=== PATIENT | male | born 1940 | race Caucasian/White ===

== ENCOUNTER 2017-09-09 | Day surgery (SDC) | END 2017-09-09 10:30 | disposition home or self-care (01) ==

== ENCOUNTER 2017-12-02 13:49 | Day surgery (SDC) | payer MEDICARE, OTHER ==
[~2017-12-02] VITALS: Ht 180.3 cm; Wt 124.3 kg
[~2017-12-02 13:49] MED LIST: ALLO100 PO; ALLO300 PO; ALPR.5 PO; ASPI81EC PO; BUME2 PO; CARV25 PO; CITA20 PO; CLOP75 PO; DOXE10 PO; FLUO10 PO; FURO80 PO; HYDACE5 PO; IMDUR; INSDET100 SC; INSR10I SC; INSR10I SUBQ; LISI20 PO; LISINOPRIL; LOSA25 PO; Lipitor; METANX; METO2.5 PO; NIFE90ER PO; Novolog100 UNIT/2 SC; POTA10T PO; PRAV20 PO; TRAM50 PO; ZOLP10 PO
[2017-12-03 04:19] LABS: BASOPHILS ABSOLUTE AUTO 0.01 K/mm3 (0.00-0.23); BASOPHILS PERCENT AUTO 0 % (0-2); EOSINOPHILS PERCENT AUTO 0 % (0-6); Hematocrit 33.4 % (37.0-53.0); IMMATURE GRAN ABSOLUTE AUTO 0.05 K/mm3 (0.00-0.10); IMMATURE GRAN PERCENT AUTO 1 % (0-1); LYMPHOCYTES ABSOLUTE AUTO 0.58 K/mm3 (0.84-5.20); LYMPHOCYTES PERCENT AUTO 7 % (21-46); MONOCYTES ABSOLUTE AUTO 0.36 K/mm3 (0.16-1.47); MONOCYTES PERCENT AUTO 4 % (4-13); Mean Corpuscular HGB 31.5 pg (26.0-34.0); Mean Corpuscular HGB Conc 32.9 g/dL (31.5-36.5); Mean Corpuscular Volume 96 fL (80-100); Mean Platelet Volume 11.6 fL (9.1-12.4); NEUTROPHILS ABSOLUTE AUTO 7.09 K/mm3 (1.96-9.15); NEUTROPHILS PERCENT AUTO 88 % (41-73); Platelet Count 84 K/mm3 (150-400); RDW Coefficient Variation 15.7 % (11.7-14.2); RDW Standard Deviation 54.7 fL (35.1-46.3); Red Blood Cell Count 3.49 M/mm3 (4.30-5.90); White Blood Cell Count 8.09 K/mm3 (4.00-11.30)
[2017-12-03 04:42] LABS: Calcium, Blood 8.3 mg/dL (8.5-10.1); Creatinine, Blood 1.97 mg/dL (0.60-1.20); Potassium, Blood 4.3 mmol/L (3.5-5.5)
[2017-12-04] MEDS ORDERED: Percocet 5-3251 EACH PO (10:48)
[2017-12-04] MEDS ORDERED: Ecotrin325 MG PO (10:49)
== END 2017-12-04 13:41 | disposition home health service (06) ==
LOC: ORSCMMR 13:49 → ORD 15:00 → ORSCMMR 15:00 → SURS 17:58 → ORSCMMR 12-04 13:41
PROVIDERS: Orthopaedic Surgery
PROC: 0SRC0JA Replacement of Right Knee Joint with Synthetic Substitute, Uncemented, Open Approach (ICD-10-PCS; principal; 2017-12-02 15:00)
DX: M17.11 Unilateral primary osteoarthritis, right knee (principal); I10 Essential (primary) hypertension; I25.10 Atherosclerotic heart disease of native coronary artery without angina pectoris; E11.9 Type 2 diabetes mellitus without complications; E66.01 Morbid (severe) obesity due to excess calories; Z68.37 Body mass index [BMI] 37.0-37.9, adult; Z79.899 Other long term (current) drug therapy; Z79.82 Long term (current) use of aspirin
CPT/HCPCS: 36415; 73560-RT; 80048; 82947; 85025; 86850; 86900; 86901; 88300; 97110; 97116; 97162; 97530; C1776; G8978; G8979; G8980; J0171; J0330; J0690; J0735; J1100; J1885; J2250; J2405; J2795; J3010; J7120

== ENCOUNTER 2018-12-02 10:29 | Inpatient (IN) | payer OTHER, MEDICARE ==
[~2018-12-02] VITALS: Ht 177.8 cm; Wt 114.0 kg
[~2018-12-02 10:29] MED LIST changes: +Ecotrin325 MG PO; +Percocet 5-3251 EACH PO
[2018-12-02 11:13] LABS: BASOPHILS ABSOLUTE AUTO 0.03 K/mm3 (0.00-0.23); BASOPHILS PERCENT AUTO 1 % (0-2); EOSINOPHILS ABSOLUTE AUTO 0.02 K/mm3 (0.00-0.68); EOSINOPHILS PERCENT AUTO 0 % (0-6); Hematocrit 31.2 % (37.0-53.0); Hemoglobin 10.5 g/dL (13.5-17.5); IMMATURE GRAN ABSOLUTE AUTO 0.03 K/mm3 (0.00-0.10); IMMATURE GRAN PERCENT AUTO 1 % (0-1); LYMPHOCYTES ABSOLUTE AUTO 1.09 K/mm3 (0.84-5.20); LYMPHOCYTES PERCENT AUTO 17 % (21-46); MONOCYTES PERCENT AUTO 11 % (4-13); Mean Corpuscular HGB Conc 33.7 g/dL (31.5-36.5); Mean Corpuscular Volume 98 fL (80-100); Mean Platelet Volume 12.3 fL (9.1-12.4); NEUTROPHILS ABSOLUTE AUTO 4.45 K/mm3 (1.96-9.15); NEUTROPHILS PERCENT AUTO 70 % (41-73); Platelet Count 86 K/mm3 (150-400); RDW Standard Deviation 50.8 fL (35.1-46.3); Red Blood Cell Count 3.18 M/mm3 (4.30-5.90); White Blood Cell Count 6.32 K/mm3 (4.00-11.30)
[2018-12-02 11:33] LABS: Albumin, Blood 3.3 g/dL (3.4-5.0); Albumin/Globulin Ratio 0.9 (0.8-1.8); Bilirubin, Total 0.6 mg/dL (0.1-1.0); Bun/Creatinine Ratio 22.5 (12.0-20.0); Calcium, Blood 8.6 mg/dL (8.5-10.1); Creatinine, Blood 3.96 mg/dL (0.60-1.20); Globulin, Blood 3.7 g/dL (2.2-4.0); Potassium, Blood 3.3 mmol/L (3.5-5.5); Troponin I 0.1 ng/mL (0.000-0.040)
[2018-12-02] MEDS ORDERED: Ultram50 MG PO (14:00)
[2018-12-03 05:23] LABS: Hematocrit 30.2 % (37.0-53.0); Hemoglobin 10.2 g/dL (13.5-17.5)
[2018-12-03 05:43] LABS: Albumin, Blood 3.2 g/dL (3.4-5.0); Anion Gap 12 mmol/L (6-16); Blood Urea Nitrogen 95 mg/dL (8-24); Bun/Creatinine Ratio 24.4 (12.0-20.0); CO2, Blood 24 mmol/L (21-32); Calcium, Blood 8.5 mg/dL (8.5-10.1); Chloride, Blood 101 mmol/L (98-108); Glomerular Filtration Rate 16 (60-); Glucose, Blood 238 mg/dL (70-99); Magnesium, Blood 1.9 mg/dL (1.6-2.4); Phosphorus, Blood 5.2 mg/dL (2.5-4.9); Potassium, Blood 3.3 mmol/L (3.5-5.5); Sodium, Blood 137 mmol/L (136-145)
[2018-12-04 05:13] LABS: Hematocrit 32.5 % (37.0-53.0); Hemoglobin 10.6 g/dL (13.5-17.5)
[2018-12-04 05:27] LABS: Albumin, Blood 3.3 g/dL (3.4-5.0); Anion Gap 10 mmol/L (6-16); Blood Urea Nitrogen 69 mg/dL (8-24); Bun/Creatinine Ratio 21.9 (12.0-20.0); CO2, Blood 28 mmol/L (21-32); Calcium, Blood 8.6 mg/dL (8.5-10.1); Chloride, Blood 100 mmol/L (98-108); Creatinine, Blood 3.15 mg/dL (0.60-1.20); Glomerular Filtration Rate 20 (60-); Glucose, Blood 200 mg/dL (70-99); Magnesium, Blood 1.9 mg/dL (1.6-2.4); Phosphorus, Blood 3.4 mg/dL (2.5-4.9); Potassium, Blood 3.4 mmol/L (3.5-5.5); Sodium, Blood 138 mmol/L (136-145)
[2018-12-05 03:07] LABS: HBSAG SCREEN Negative (Negative); HEP A AB, IGM Negative (Negative); HEP B CORE AB, IGM Negative (Negative); HEP C VIRUS AB <0.1 (0.0-0.9)
[2018-12-05 04:48] LABS: Hematocrit 30.7 % (37.0-53.0); Hemoglobin 10.1 g/dL (13.5-17.5)
[2018-12-05 05:01] LABS: Anion Gap 9 mmol/L (6-16); Blood Urea Nitrogen 50 mg/dL (8-24); Bun/Creatinine Ratio 18.3 (12.0-20.0); CO2, Blood 29 mmol/L (21-32); Calcium, Blood 8.4 mg/dL (8.5-10.1); Chloride, Blood 103 mmol/L (98-108); Creatinine, Blood 2.73 mg/dL (0.60-1.20); Glomerular Filtration Rate 24 (60-); Glucose, Blood 121 mg/dL (70-99); Phosphorus, Blood 2.7 mg/dL (2.5-4.9); Potassium, Blood 3.2 mmol/L (3.5-5.5); Sodium, Blood 141 mmol/L (136-145)
[2018-12-05 09:10] LABS: Uric Acid, Blood 5.4 mg/dL (3.5-7.2)
[2018-12-06 05:36] LABS: Hematocrit 31.9 % (37.0-53.0); Hemoglobin 10.3 g/dL (13.5-17.5)
[2018-12-06 05:54] LABS: Albumin, Blood 3.2 g/dL (3.4-5.0); Anion Gap 9 mmol/L (6-16); Blood Urea Nitrogen 60 mg/dL (8-24); Bun/Creatinine Ratio 19.2 (12.0-20.0); CO2, Blood 29 mmol/L (21-32); Calcium, Blood 8.6 mg/dL (8.5-10.1); Chloride, Blood 99 mmol/L (98-108); Creatinine, Blood 3.12 mg/dL (0.60-1.20); Glomerular Filtration Rate 21 (60-); Glucose, Blood 167 mg/dL (70-99); Magnesium, Blood 1.8 mg/dL (1.6-2.4); Phosphorus, Blood 2.9 mg/dL (2.5-4.9); Potassium, Blood 3.6 mmol/L (3.5-5.5); Sodium, Blood 137 mmol/L (136-145)
[2018-12-07 04:54] LABS: Hematocrit 31.3 % (37.0-53.0); Hemoglobin 10.3 g/dL (13.5-17.5)
[2018-12-07 05:15] LABS: Anion Gap 9 mmol/L (6-16); Blood Urea Nitrogen 47 mg/dL (8-24); Bun/Creatinine Ratio 17.9 (12.0-20.0); CO2, Blood 29 mmol/L (21-32); Calcium, Blood 8.3 mg/dL (8.5-10.1); Chloride, Blood 98 mmol/L (98-108); Creatinine, Blood 2.62 mg/dL (0.60-1.20); Glomerular Filtration Rate 25 (60-); Glucose, Blood 157 mg/dL (70-99); Magnesium, Blood 1.8 mg/dL (1.6-2.4); Phosphorus, Blood 3.2 mg/dL (2.5-4.9); Potassium, Blood 3.2 mmol/L (3.5-5.5); Sodium, Blood 136 mmol/L (136-145)
[2018-12-07] MEDS ORDERED: Bumetanide2 MG PO (14:27)
[2018-12-07] MEDS ORDERED: ACET325 PO (14:28)
[2018-12-07] MEDS ORDERED: Humalog100 UNIT/1 SC (14:43)
[2018-12-07] MEDS ORDERED: BASAGLAR K100 UNIT/1 SC (14:44)
[2018-12-07 15:15] LABS: Protein, Urine Quantitative 68.1 mg/dL (0.0-11.9)
[2018-12-09 08:08] LABS: ANTIGLOMERULAR BM AB 3 units (0-20)
[2018-12-09 14:07] LABS: ANA DIRECT Negative (Negative); ANTIMYELOPEROXIDASE (MPO) ABS <9.0 U/mL (0.0-9.0); ANTIPROTEINASE 3 (PR-3) ABS <3.5 U/mL (0.0-3.5); ATYPICAL PANCA <1:20 titer (Neg:<1:20); CYTOPLASMIC (C-ANCA) <1:20 titer (Neg:<1:20); PERINUCLEAR (P-ANCA) <1:20 titer (Neg:<1:20)
[2018-12-09 15:07] LABS: A/G RATIO 1.2 (0.7-1.7); ALBUMIN 3.4 g/dL (2.9-4.4); ALPHA-1-GLOBULIN 0.3 g/dL (0.0-0.4); ALPHA-2-GLOBULIN 0.7 g/dL (0.4-1.0); GAMMA GLOBULIN 1.1 g/dL (0.4-1.8); IMMUNOGLOBULIN A, QN, SERUM 497 mg/dL (61-437); IMMUNOGLOBULIN G, QN, SERUM 1106 mg/dL (700-1600); IMMUNOGLOBULIN M, QN, SERUM 73 mg/dL (15-143); M-SPIKE 0.2 g/dL (Not Observed); PROTEIN, TOTAL, SERUM 6.4 g/dL (6.0-8.5)
[2018-12-11 12:07] LABS: M-SPIKE, % Not Observed % (Not Observed); PROTEIN,TOTAL,URINE 65.7 mg/dL (Not Estab.)
== END 2018-12-07 14:58 | disposition home or self-care (01) | DRG 674 ==
LOC: ER 10:29 → MEDS 10:30
PROVIDERS: Emergency Medicine; Internal Medicine Nephrology; ADMIT Internal Medicine
PROC: 0JH63XZ Insertion of Tunneled Vascular Access Device into Chest Subcutaneous Tissue and Fascia, Percutaneous Approach (ICD-10-PCS; 2018-12-02)
PROC: 02HV33Z Insertion of Infusion Device into Superior Vena Cava, Percutaneous Approach (ICD-10-PCS; principal; 2018-12-03)
PROC: B5181ZA Fluoroscopy of Superior Vena Cava using Low Osmolar Contrast, Guidance (ICD-10-PCS; 2018-12-03)
PROC: 5A1D70Z Performance of Urinary Filtration, Intermittent, Less than 6 Hours Per Day (ICD-10-PCS; 2018-12-03)
DX: N17.9 Acute kidney failure, unspecified (principal); I13.2 Hypertensive heart and chronic kidney disease with heart failure and with stage 5 chronic kidney disease, or end stage renal disease; I50.42 Chronic combined systolic (congestive) and diastolic (congestive) heart failure; Z79.4 Long term (current) use of insulin; N18.6 End stage renal disease; N25.81 Secondary hyperparathyroidism of renal origin; I25.10 Atherosclerotic heart disease of native coronary artery without angina pectoris; Z79.891 Long term (current) use of opiate analgesic; Z95.0 Presence of cardiac pacemaker; Z96.0 Presence of urogenital implants; Z87.891 Personal history of nicotine dependence; E78.5 Hyperlipidemia, unspecified; G47.33 Obstructive sleep apnea (adult) (pediatric); E87.6 Hypokalemia; E83.39 Other disorders of phosphorus metabolism; E11.65 Type 2 diabetes mellitus with hyperglycemia; R16.1 Splenomegaly, not elsewhere classified; E88.09 Other disorders of plasma-protein metabolism, not elsewhere classified; E11.51 Type 2 diabetes mellitus with diabetic peripheral angiopathy without gangrene; E11.22 Type 2 diabetes mellitus with diabetic chronic kidney disease; D69.6 Thrombocytopenia, unspecified; I35.0 Nonrheumatic aortic (valve) stenosis; Z99.2 Dependence on renal dialysis
CPT/HCPCS: 36415; 36558; 71046; 74150; 76770; 76937; 80048; 80053; 80069; 80074; 81050; 82550; 82784; 82947; 83516; 83520; 83735; 83880; 84156; 84165; 84166; 84484; 84550; 85014; 85018; 85025; 86038; 86256; 86317; 86334; 86335; 93005; 93010; 93306; 96372; 99152; 99153; 99285-25; A9270; C1750; C1769; G0378; J0881; J1644; J1650; J2250; J3010; J7040

== ENCOUNTER 2019-01-12 08:38 | Emergency (ER) | payer OTHER, MEDICARE ==
[~2019-01-12] VITALS: Ht 180.3 cm; Wt 111.1 kg
[~2019-01-12 08:38] MED LIST changes: +ACET325 PO; +BASAGLAR K100 UNIT/1 SC; +Bumetanide2 MG PO; +Humalog100 UNIT/1 SC; +Ultram50 MG PO
[2019-01-12] MEDS ORDERED: ALPR.5 PO (09:06)
[2019-01-12] MEDS ORDERED: LORA.5 PO (09:07)
[2019-01-12] MEDS ORDERED: Protonix40 MG (09:08)
[2019-01-12] MEDS ORDERED: ALUM320SU PO (09:09)
[2019-01-12 09:46] LABS: BASOPHILS ABSOLUTE AUTO 0.04 K/mm3 (0.00-0.23); BASOPHILS PERCENT AUTO 1 % (0-2); EOSINOPHILS ABSOLUTE AUTO 0.03 K/mm3 (0.00-0.68); EOSINOPHILS PERCENT AUTO 0 % (0-6); Hematocrit 34.1 % (37.0-53.0); IMMATURE GRAN ABSOLUTE AUTO 0.04 K/mm3 (0.00-0.10); IMMATURE GRAN PERCENT AUTO 1 % (0-1); LYMPHOCYTES ABSOLUTE AUTO 1.29 K/mm3 (0.84-5.20); LYMPHOCYTES PERCENT AUTO 18 % (21-46); MONOCYTES ABSOLUTE AUTO 0.63 K/mm3 (0.16-1.47); MONOCYTES PERCENT AUTO 9 % (4-13); Mean Corpuscular HGB 32.6 pg (26.0-34.0); Mean Corpuscular HGB Conc 32.3 g/dL (31.5-36.5); Mean Corpuscular Volume 101 fL (80-100); NEUTROPHILS ABSOLUTE AUTO 5.06 K/mm3 (1.96-9.15); NEUTROPHILS PERCENT AUTO 71 % (41-73); NRBC ABSOLUTE 0.02 K/mm3 (0.00-0.02); NRBC Auto 0.3 /100 WBC (0.0-0.2); Platelet Count 109 K/mm3 (150-400); RDW Coefficient Variation 16.2 % (11.7-14.2); RDW Standard Deviation 58.6 fL (35.1-46.3); Red Blood Cell Count 3.37 M/mm3 (4.30-5.90); White Blood Cell Count 7.09 K/mm3 (4.00-11.30)
[2019-01-12 10:05] LABS: Albumin, Blood 3.5 g/dL (3.4-5.0); Albumin/Globulin Ratio 0.9 (0.8-1.8); Bilirubin, Total 0.9 mg/dL (0.1-1.0); Bun/Creatinine Ratio 26.1 (12.0-20.0); Calcium, Blood 8.9 mg/dL (8.5-10.1); Creatinine, Blood 1.99 mg/dL (0.60-1.20); Potassium, Blood 4.3 mmol/L (3.5-5.5); Total Protein, Blood 7.5 g/dL (6.4-8.2)
== END 2019-01-12 12:10 | disposition home or self-care (01) ==
LOC: ER 08:38
PROVIDERS: Physician Assistant
DX: R06.02 Shortness of breath (principal); R53.83 Other fatigue; E11.22 Type 2 diabetes mellitus with diabetic chronic kidney disease; I12.0 Hypertensive chronic kidney disease with stage 5 chronic kidney disease or end stage renal disease; N18.6 End stage renal disease; D63.1 Anemia in chronic kidney disease; F17.200 Nicotine dependence, unspecified, uncomplicated; Z79.899 Other long term (current) drug therapy; Z79.4 Long term (current) use of insulin
CPT/HCPCS: 36415; 71046; 80053; 84484; 85025; 86850; 86900; 86901; 93005; 93010; 99285-25

== ENCOUNTER → 2019-02-19 | Outpatient (CLI) | payer MEDICARE, OTHER ==
[~2019-02-19] MED LIST changes: +ALUM320SU PO; +LORA.5 PO; +Protonix40 MG
== END | disposition home or self-care (01) ==
LOC: LAB 11:00 → LAB SHORT 11:00
DX: L03.119 Cellulitis of unspecified part of limb (principal)
CPT/HCPCS: 87070; 87077; 87186; 87205

== ENCOUNTER 2019-08-25 06:06 | Day surgery (SDC) | payer MEDICARE, OTHER ==
[~2019-08-25] VITALS: Ht 177.8 cm; Wt 105.0 kg
[~2019-08-25 06:06] MED LIST changes: +ASPI81CH PO; +INSDET100; +Pravachol40 MG PO
[2019-08-25] MEDS ORDERED: CLOP75 PO (09:39)
--- NOTE | 2019-08-25 13:30 | NUR ---
R WRIST TR BAND REMOVED. -BLEEDING OR SWELLING. PUNCTURE AREA CLEANED /C NS, CLOTH DOT DRSG PLACED. R WRIST SPLINT REAPPLIED. PT ABD TO BATHROOM /C SBA. TOLERATED WELL. -BLEEDING OR SWELLING R GROIN AREA. PT VERBALIZED UNDERSTANDING OF WRITTEN AND VERBAL D/C INST. IV REMOVED. PT TAKEN OUT OF THE HRT CENTER VIA W/C.
== END 2019-08-25 13:30 | disposition home or self-care (01) ==
LOC: MHTC 06:06
PROC: B201YZZ Plain Radiography of Multiple Coronary Arteries using Other Contrast (ICD-10-PCS; principal; 2019-08-25)
PROC: B206YZZ Plain Radiography of Right and Left Heart using Other Contrast (ICD-10-PCS; principal; 2019-08-25)
PROC: 4A023N8 Measurement of Cardiac Sampling and Pressure, Bilateral, Percutaneous Approach (ICD-10-PCS; principal; 2019-08-25)
DX: I25.5 Ischemic cardiomyopathy (principal); I25.10 Atherosclerotic heart disease of native coronary artery without angina pectoris; I27.20 Pulmonary hypertension, unspecified; I35.0 Nonrheumatic aortic (valve) stenosis; I12.9 Hypertensive chronic kidney disease with stage 1 through stage 4 chronic kidney disease, or unspecified chronic kidney disease; E11.22 Type 2 diabetes mellitus with diabetic chronic kidney disease; N18.3 Chronic kidney disease, stage 3 (moderate); E78.00 Pure hypercholesterolemia, unspecified; Z79.4 Long term (current) use of insulin; Z79.899 Other long term (current) drug therapy; Z79.82 Long term (current) use of aspirin; Z87.891 Personal history of nicotine dependence
CPT/HCPCS: 82947; 93458; 93460; 99152; 99153; C1769; C1887; C1894; J1200; J1644; J2250; J3010; J7030; Q9967

== ENCOUNTER 2019-09-10 06:32 | Observation (INO) | payer MEDICARE, OTHER ==
[~2019-09-10] VITALS: Ht 177.8 cm; Wt 109.2 kg
[~2019-09-10 06:32] MED LIST changes: -INSDET100
--- NOTE | 2019-09-10 11:40 | NUR ---
ARRIVAL NOTE: PT ARRIVED FROM VIA BED. PT ORIENTED TO THE ROOM. RT RADIAL/RT GROIN SITES ASSESSED AND STABLE AT THIS TIME. TR BAND IN PLACE TO RT RADIAL W/ SPLINT, AND SHEATH TO RT GROIN. PT IS DROWSY BUT AWAKENS TO VERBAL STIMULI AND ANSWERS SIMPLE YES/NO QUESTIONS APPROPRIATELY. LUNGS ARE CLEAR T/O BILATERALLY, DIM IN BILATERAL BASES. SP02 100% ON 2L 02 VIA N/C. AFTER OBSERVING PT ON 1L 02 FOR A SHORT PERIOD, PT WAS TAKEN OFF 02 SPO2 99-100%. HR IRREGULAR, 100% ATRIAL PACED WITH OCASSIONAL/FREQUENT PVC'S. ABD LARGE/ROUND/SOFT/NON-TENDER TO PALPATION. BT'S HYPOACTIVE X 4 QAUDS AT THIS TIME. PT REPORTS HE HASN'T EATEN FOR OVER A DAY. WILL RESUME DIET AFTER LOOKING OVER ORDERS. NO VOID YET.
--- NOTE | 2019-09-10 17:58 | NUR ---
PT UPDATE/POST SHEATH PULL: RT GROIN WITH A SMALL AMT OF SWELLING DIRECTLY AROUND INSERTION SITE AND A SMALL HARD KNOT, HOWEVER, SITE AFTER 20 MINUTES OF MANUAL PRESSURE IS STABLE. NO FURTHER OOZING/BLEEDING/NEW SWELLING. MURPHY CATHETER PLACED PT WAS NOT ABLE TO VOID DESPITE SEVERAL ATTEMPTS TO USE THE URINAL. PT REPORTS HE "HAS TO STAND TO PEE." 16F COUDE CATHETER PLACED AND URINE SAMPLE SENT TO LAB.
[2019-09-10 18:10] LABS: Source, Urine Catheter
[2019-09-10 18:21] LABS: Bilirubin, Urine Neg (Neg); Blood, Urine 1+ (Neg); Glucose Qualitative, Urine Neg (Neg); Ketones, Urine Neg (Neg); Leukocyte Esterase, Urine Neg (Neg); Nitrite, Urine Neg (Neg); Protein, Urine 3+ (Neg); Urobilinogen, Urine NORM (Normal)
[2019-09-10 18:34] LABS: Appearance, Urine Clear (Clear); Color, Urine Yellow (P-Yellow)
[2019-09-10 18:35] LABS: Bacteria Rare /hpf; Squamous Epithelial Cells Rare /hpf (Few); White Blood Cells, Urine 0-2 /hpf (0-5)
--- NOTE | 2019-09-10 19:00 | NUR ---
SHIFT SUMMARY: PT'S RT GROIN SITE REMAINS STABLE AT THIS TIME. IN FACT, SMALL AMT OF SWELLING/SMALL KNOT IMPROVED SINCE PRIOR TO SHEATH PULL. PT ANXIOUS ABOUT FLUCTUATING BP'S T/O SHIFT. NO C/O PAIN. PT NEEDS CONSTANT REMINDERS OF ACTIVITY RESTRICTIONS. PT DESIRES TO GO HOME TONIGHT BUT UNDERSTANDS HE IS STAYING OVERNIGHT AND WANTS MURPHY D/C'D SOON ACTIVITIY RESTRICITONS ARE LIFTED. PT'S HR REMAINS 100% A-PACED WITH OCASSIONAL/FREQUENT PVC'SLOW 60'S RANGE. PT'S BP VERY LABILE T/O SHIFT. PT TO RESTART ON HOME CARDIAC MEDS. PT REC'D NS AT 75ML/HR X6 HRS, THEN PT DIURESED WITH LASIX 40 MG IVP. MURPHY CATH PLACED R/T URINARY RETENTION. BLADDER SCANNED >500ML IN BLADDER PRIOR TO PLACEMENT. UA SENT TO LAB. DRAINING CLEAR, YELLOW URINE. NO BM THIS SHIFT. PT W/GOOD APPETITE.
--- NOTE | 2019-09-10 19:15 | NUR ---
REPORTED OFF TO GISELLE FRANCIS WHOM WILL ASSUME CARE OF THIS PT. CHECKED RT RADIAL AND RT GROIN SITES TOGETHER. BOTH SITES REMAIN STABLE AT THIS TIME
[2019-09-11 03:17] LABS: BASOPHILS ABSOLUTE AUTO 0.03 K/mm3 (0.00-0.23); BASOPHILS PERCENT AUTO 0 % (0-2); EOSINOPHILS PERCENT AUTO 0 % (0-6); Hematocrit 34.2 % (37.0-53.0); Hemoglobin 11.2 g/dL (13.5-17.5); IMMATURE GRAN ABSOLUTE AUTO 0.03 K/mm3 (0.00-0.10); IMMATURE GRAN PERCENT AUTO 0 % (0-1); LYMPHOCYTES ABSOLUTE AUTO 0.95 K/mm3 (0.84-5.20); LYMPHOCYTES PERCENT AUTO 12 % (21-46); MONOCYTES ABSOLUTE AUTO 0.68 K/mm3 (0.16-1.47); MONOCYTES PERCENT AUTO 9 % (4-13); Mean Corpuscular HGB Conc 32.7 g/dL (31.5-36.5); Mean Corpuscular Volume 98 fL (80-100); Mean Platelet Volume 11.8 fL (9.1-12.4); NEUTROPHILS ABSOLUTE AUTO 6.21 K/mm3 (1.96-9.15); NEUTROPHILS PERCENT AUTO 79 % (41-73); Platelet Count 71 K/mm3 (150-400); RDW Coefficient Variation 16.7 % (11.7-14.2); RDW Standard Deviation 59.3 fL (35.1-46.3)
[2019-09-11 03:31] LABS: Bun/Creatinine Ratio 26.7 (12.0-20.0); Calcium, Blood 8.5 mg/dL (8.5-10.1); Creatinine, Blood 1.46 mg/dL (0.60-1.20); Potassium, Blood 3.8 mmol/L (3.5-5.5)
--- NOTE | 2019-09-11 05:49 | NUR ---
SHIFT SUMMARY PATIENT SLEPT WELL TONIGHT. HAD A ROUGH START GETTING PAIN, ANXIETY, BLOOD PRESSURE UNDER CONTROL, MOST WERE RELIEVED ONCE PATIENT WAS ABLE TO MOVE OFF OF BACK AROUND 22:30. SHAKE SAWYER ACCESS SITES STABLE ALL NIGHT, NO FURTHER COMPLICATIONS. DID RECEIVE ORDER FROM DR. BUCKLEY FOR HYDRALAZINE AFTER FAILED ATTEMPTS TO DECREASE BP WITH SCHEDULED MEDS, ANXIOLYTICS, MUCH IMPROVED AFTER HYDRALAZINE, SEE VITALS. PATIENT MOVES FROM BED TO CHAIR WITHOUT DIZZINESS, SAT UP FOR ABOUT 2 HOURS EARLIER THIS AM. ASSESSMENT IS CHARTED. VSS. NO C/O PAIN. WILL CONTINUE TO MONITOR.
--- NOTE | 2019-09-11 11:13 | NUR ---
SUMMARY Assumed care of pt at 0700. Bedside report recieved from Sukh DESAI. Procedure sites assessed during report. Right radial site with nonadherent dressing and tegaderm in place. No drainage, hematoma, or bruising noted. Color, sensation, pulses, capillary refill equal BUE. Right femoral site with nonadherent dressing and tegaderm in place. Bruising noted to area, unchanged from previous shift. No drainage or hematoma. Color, sensation, pulses, capillary refill equal BLE. Pt A&O x 4. Answers questions, follows commands, verbalizes needs. Wears bilateral hearing aids but is still severely hard of hearing. Pt reads lips and repeats back to ensure is hearing the speaker correctly. Pt on room air. SpO2 90% or greater. Vital signs stable. Ate 100% of breakfast, tolerated well. Voided urine into toilet. Independent in room. Dr Arenas in to see pt around 0800. Stated pt may go home. This RN reviewed rhythm strips with provider from 09/10/19 showing bigeminal rhythm with atrial pacing. Discussed that pt has dual chamber pacemaker and possibility that pt was ventricular pacing vs having PVCs. Provider reiterated that pt is okay to go home. Stated she would like pt to ambulate and femoral site to be assessed afterwards for stability. Pt ambulated 400+ feet. Steady, but slow gait. No changes noted to femoral site or BLE assessment. Pt discharged from unit at 0900. Discharge education given to pt who repeated education back to this RN. Reviewed medication regimen, including strict adherence to aspirin and plavix. Pt verbalizes understanding, including that a family member is an echocardiogram cctv technician and "he told me how quickly a stent can clog up". Stent card given to pt. Pt placed it in walled. Reviewed activity restrictions. Pt verbalized understanding. Pt escorted to entrance by this RN to meet his , Liya, who is driving him home.
== END 2019-09-11 09:02 | disposition home or self-care (01) ==
LOC: MHTC 06:32 → PCU 10:52 → ICUW 11:15 → MHTC 21:43 → ICUW 21:46
PROVIDERS: ADMIT Internal Medicine Interventional Cardiology
DX: I25.10 Atherosclerotic heart disease of native coronary artery without angina pectoris (principal); E11.22 Type 2 diabetes mellitus with diabetic chronic kidney disease; I13.0 Hypertensive heart and chronic kidney disease with heart failure and stage 1 through stage 4 chronic kidney disease, or unspecified chronic kidney disease; I50.40 Unspecified combined systolic (congestive) and diastolic (congestive) heart failure; N18.3 Chronic kidney disease, stage 3 (moderate); E78.00 Pure hypercholesterolemia, unspecified; Z79.4 Long term (current) use of insulin; Z79.899 Other long term (current) drug therapy; Z87.891 Personal history of nicotine dependence
CPT/HCPCS: 36415; 51703; 76937; 80048; 81001; 82947; 85025; 85347; 85730; 92978; 93005; 93010; 99152; 99153; A9270; A9270-GY; C1724; C1725; C1753; C1769; C1874; C1887; C1894; C9600; C9602; G0378; J0360; J1200; J1644; J1940; J2250; J3010; J7030; J7040; Q9967

== ENCOUNTER 2020-04-07 01:19 | Inpatient (IN) | payer OTHER, MEDICARE ==
[~2020-04-07] VITALS: Ht 177.8 cm; Wt 86.2 kg
[~2020-04-07 01:19] MED LIST changes: +ALOGLIPTIN6.25 MG PO; -CARV25 PO; +CARV3.125 PO; +GLUCOSE4 GM PO; +LEVEMIR FL100 UNIT/2 SC; +MEGESTROL400 MG/11 PO; +METO5 PO; +NOVOLOG100 UNIT/3 SC; +PANT40 PO
[2020-04-07 01:55] LABS: BASOPHILS ABSOLUTE AUTO 0.05 K/mm3 (0.00-0.23); BASOPHILS PERCENT AUTO 0 % (0-2); EOSINOPHILS ABSOLUTE AUTO 0.01 K/mm3 (0.00-0.68); EOSINOPHILS PERCENT AUTO 0 % (0-6); Hematocrit 39.5 % (37.0-53.0); IMMATURE GRAN ABSOLUTE AUTO 0.48 K/mm3 (0.00-0.10); IMMATURE GRAN PERCENT AUTO 3 % (0-1); LYMPHOCYTES ABSOLUTE AUTO 0.88 K/mm3 (0.84-5.20); LYMPHOCYTES PERCENT AUTO 5 % (21-46); MONOCYTES ABSOLUTE AUTO 0.94 K/mm3 (0.16-1.47); MONOCYTES PERCENT AUTO 6 % (4-13); Mean Corpuscular HGB 33.2 pg (26.0-34.0); Mean Corpuscular HGB Conc 35.4 g/dL (31.5-36.5); Mean Corpuscular Volume 94 fL (80-100); Mean Platelet Volume 12.7 fL (9.1-12.4); NEUTROPHILS ABSOLUTE AUTO 14.77 K/mm3 (1.96-9.15); NEUTROPHILS PERCENT AUTO 86 % (41-73); Platelet Count 142 K/mm3 (150-400); RDW Coefficient Variation 14.6 % (11.7-14.2); RDW Standard Deviation 49.6 fL (35.1-46.3); Red Blood Cell Count 4.22 M/mm3 (4.30-5.90); White Blood Cell Count 17.13 K/mm3 (4.00-11.30)
[2020-04-07 02:00] LABS: Calcium, Ionized (POC) 1.08 mmol/L (1.10-1.46); Chloride (POC) 97 mmol/L (98-108); Glucose (ISTAT POC) 179 mg/dL (70-99); Hemoglobin (POC) 13.9 g/dL (13.5-17.5); Potassium (POC) 2.1 mmol/L (3.5-5.5); Sodium (POC) 134 mmol/L (135-148); Total CO2 (POC) 25 mmol/L (21-32)
[2020-04-07 02:04] LABS: Troponin I 0.454 ng/mL (0.000-0.040)
[2020-04-07 02:06] LABS: Albumin, Blood 3.5 g/dL (3.4-5.0); Albumin/Globulin Ratio 0.9 (0.8-1.8); Bilirubin, Total 1.3 mg/dL (0.1-1.0); Bun/Creatinine Ratio 61.6 (12.0-20.0); Calcium, Blood 8.7 mg/dL (8.5-10.1); Creatinine, Blood 1.72 mg/dL (0.60-1.20); Globulin, Blood 3.8 g/dL (2.2-4.0); Potassium, Blood 2.1 mmol/L (3.5-5.5); Total Protein, Blood 7.3 g/dL (6.4-8.2)
[2020-04-07] MEDS ORDERED: PRAV20 PO (02:37)
[2020-04-07] MEDS ORDERED: ATOR20 PO (04:57)
[2020-04-07 07:43] LABS: Source, Urine Clean Catch
[2020-04-07 07:47] LABS: Appearance, Urine Clear (Clear); Bilirubin, Urine Neg (Neg); Blood, Urine 5+ (Neg); Color, Urine Yellow (P-Yellow); Glucose Qualitative, Urine 1+ (Neg); Ketones, Urine Neg (Neg); Leukocyte Esterase, Urine Neg (Neg); Nitrite, Urine Neg (Neg); Protein, Urine 2+ (Neg); Urobilinogen, Urine NORM (Normal)
[2020-04-07 08:13] LABS: Bacteria Rare /hpf; Red Blood Cells, Urine TNTC /hpf (0-2); Squamous Epithelial Cells Not Seen /hpf (Few); White Blood Cells, Urine 0-2 /hpf (0-5)
[2020-04-07 10:22] LABS: Bun/Creatinine Ratio 61.5 (12.0-20.0); Creatinine, Blood 1.61 mg/dL (0.60-1.20); Potassium, Blood 2.8 mmol/L (3.5-5.5)
[2020-04-07 10:28] LABS: CPK Creatine Kinase 79 U/L (39-308)
--- NOTE | 2020-04-07 11:31 | NUR ---
ASSUME CARE: SON GARTH WAS CALLED AND UPDATED REGARDING PT STATUS AWARE THAT DR SPANN WANTED TO TALK TO FAMILY MEMBER REGARDING PT'S STATUS AND CONDITION. SON TO COME VISIT TODAY LATER THIS AFTERNOON. PT'S LAST DRAW OF K: 2.8, TROP ELEVATED AT 0.555, CBG WAS DOWN TO 34 THIS MORNING WAS GIVEN ONE TIME DOSE OF D50 SYRINGE LAST CBG WAS 118 AT 1000A, WILL MONITOR Q2HRS UNTIL STABLE. DR SPANN WAS CALLED AND UPDATED REGARDING PT'S LAB VALUES. PT STARTED ON CLEAR LIQUID DIET WAS ABLE TO TOLERATE TO SWALLOW. DR SPANN CAME BY AND TOLD THIS RN THAT SHE WAS ABLE TO HAVE DISCUSSION WITH THE SON AND WAS OKAY TRANSITIONING PT TO COMFORT CARE. AWAITING FOR ORDERS AT THIS TIME. PT RECEIVED BED BATH THIS AM, WAS REPOSITIONED AND MADE COMFORTABLE IN BED. WILL CONTINUE TO MONITOR PT
--- NOTE | 2020-04-07 13:42 | NUR ---
PT CAME IN HERE IN MEDICAL FROM [facility]. PT IS NOW ON COMFORT CARE. PT ORIGINALLY CAME HERE FOR HYPOKALEMIA, ON ADMISSION HE CAME HERE WITH K OF 2.1 AND CBG OF 21. PT RECEIVED K-RIDER AND D5/NS. PMH- DIMENTIA, CKD, HTN, DM TYPE 2, CHF, HYPERLIPIDEMIA,ANEMIA, AND HAS PACEMAKER. PT IS ON CLEAR LIQUID DIET NOW AND LIKES PADILLA MIST AND ORANGE JUICE. SPECIAL EVENT ASSISTANT STATED THAT PT WAS HAVING SOME RETENTION DURING ADMISSION, THEY WERE ABLE TO BLADDER SCAN THE PT AND STRAIGHT CATH HIM. I WAS TOLD THAT THE PT WILL DC TOMORROW IF HE DOES NOT PASS TONIGHT. REASSESSED THE PT PAIN; DENIES ANY PAIN AT THIS TIME. WILL TALK TO THE FAMILY WHETHER THEY WANT THE PT TO HAVE MURPHY CATHETER ON.
--- NOTE | 2020-04-07 13:50 | NUR ---
PT TRANSITIONED TO COMFORT CARE AND [facility]ED [facility], REPORT GIVEN TO SARAHI DESAI. FAMILY MADE AWARE OF THE TRANSFER, PT WAS GIVEN MORPHINE 10MG X1 DOSE FOR PAIN AND COMFORT AND WAS EFFECTIVE. PT REPOSITIONED Q2 HRS, ALL BELONGINGS SENT WITH PT. PT TRANSFERRED VIA HOSPITAL BED.
[2020-04-07 15:24] LABS: Source, Urine Catheter
[2020-04-07 15:27] LABS: Appearance, Urine Clear (Clear); Bilirubin, Urine Neg (Neg); Blood, Urine 3+ (Neg); Color, Urine Yellow (P-Yellow); Glucose Qualitative, Urine Neg (Neg); Ketones, Urine Neg (Neg); Leukocyte Esterase, Urine Neg (Neg); Nitrite, Urine Neg (Neg); Protein, Urine 1+ (Neg); Urobilinogen, Urine NORM (Normal)
--- NOTE | 2020-04-07 15:28 | NUR ---
PT MEDICATED FOR PAIN. SON AT BEDSIDE.
[2020-04-07 15:41] LABS: White Blood Cells, Urine 0-2 /hpf (0-5)
[2020-04-07 15:42] LABS: Bacteria Rare /hpf; Squamous Epithelial Cells Rare /hpf (Few)
--- NOTE | 2020-04-07 17:47 | NUR ---
FAMILY DISCUSSION I WAS ABLE TO TALKED WITH THE PT SON IN LAW , HE STATED THAT THEY WILL NEED TO TALK TO THE DR TOMORROW IF POSSIBLE. HE STATED THAT "I THINK IT WILL BE TOO MUCH FOR MY IF DAD PASS AWAY AT HOME, SO WE WOULD LIKE FOR HIM TO STAY HERE AND PASS."
--- NOTE | 2020-04-07 17:52 | NUR ---
PT DAUGHTER AT THE BEDSIDE FEEDING THE PT. OFFERRED REPOSITION PRIOR; BUT STATED MAYBE WE CAN TRY TO REPOSITION LATER.
--- NOTE | 2020-04-08 06:41 | NUR ---
CERTIFIED NUCLEAR MEDICINE TECHNOLOGIST SUMMARY PT COMFORT CARE STATUS. SLEPT ALL NIGHT TONIGHT. PT'S SON STAYED BY PT'S BEDSIDE TONIGHT. FREQUENT REPOSITIONING PROVIDED, COMFORT CARE MEASURES GIVEN. PT IS WIYOT, APPEARS PLEASANT. MEDICATED ONCE FOR PAIN THIS MORNING.
--- NOTE | 2020-04-08 11:46 | NUR ---
Initial Visit Palliative Care Consult for Advanced Care Planning and Symptom Management. Spoke with Dr Feng prior to Pt visit and discussed Case. Pt has Dementia and was admitted for hypokalemia, hypoglycemia, and hypothermia. Pt's tropin elevated as well. Dr Feng had discussion with family regarding goals of care and Pt placed on Comfort Care. Family has reservation with Pt returning home with hospice due to behavioral disturbances. Pt is resting in bed upon arrival. Pt is pleasantly confused and is A&OX 2/3. Pt reports pain in his left ankle and reports concern regarding developing a pressure ulcer. Area red and tender to the touch. Pt unable to verbalize pain rating. When pressed Pt startles with pain. As conversation continues it becomes more evident Pt is confused. Pt unable to answer many questions and is easily distracted. Spoke with Daughter Herminia and son Fabrice. Pt requires assistance with dressing, bathing, transfers, and ambulation. Over the last few days Pt has attempted to urinated with inability to void. [place] Catheter currently in place. Pt also wears attemds for potential accidents. Son Fabrice reports 6 months ago Pt weighed approximately 250 pounds and has weight loss due to lack of appetite. Admission weight is 190 pounds. Family reports Pt is more alert today and is very talkative. Prior to today Pt has not been verbal and somewhat somnolant. Educated on hospice and answered questions. Discussed medications that will be available and support that hospice can provide. Fabrice reports feeling more comfortable in regards to taking Pt home with hospice. Family reports no other concerns at this time and express appreciation of visit. Provided Palliative Care contact information and instructed to call with any questions or concerns. Spoke with Bedside GISELLE Arthur and discussed case. Spoke with Dr Feng discussed case. Dr Feng will place order for bowel regimen. Maintenance medications D/C and comfort medications added. PPS 40% ADLs 5/6 FAST 7C Pt appears appropriate for hospice and family is agreeable. Palliative Care will remain available for symptom management and supportive visits.
--- NOTE | 2020-04-08 20:04 | NUR ---
IMPROVED MENTATION, enjoyed family and the food they brought, family asked for a blood sugar check and it came back high, noc nurse called hospitalist for orders, had medicated with morphine and ativan to family and pt satisfaction, many questions about what was planned for him, bsr shared with pt and noc nurse
[2020-04-08 21:08] LABS: Glucose, Blood 624 mg/dL (70-99)
--- NOTE | 2020-04-08 23:00 | NUR ---
1930 pt on comfort care measures. pt more alert tonight compared to previous night. 4-5 family members are in with patient. At this this pt's AM nurse was still here and family member asked this nurse if pt can have blood sugar checked. pt agreed to this. blood sugar very high and pt was agitated despite ativan given at 1849. family members asked if staff can treat high blood sugar for tonight. At this point family member is in a dilemma whether if they still want him to be on comfort care or recieve treatment since he is more active and talking. Pt kept saying he wants his insulin. CHarge nurse, Rebeca Edwards notified who went to talk to family and provided more clarity. family members said they will regroup tomorrow and decide but for now they would like for staff to treat pt for blood sugar. hospitalist Sarah Liu notified. AC/HS blood sugars with medium sliding scale humalog ordered. Pt also had a lot of food family brought in per family and am nurse. Tums also ordered as pt was complaining of heartburn. will continue to monitor.
--- NOTE | 2020-04-09 07:02 | NUR ---
SENIOR FRONT END ENGINEER SUMMARY PT ON COMFORT MEASURES WITH AC/HS BLOOD SUGAR CHECKS. PT FELL ASLEEP AFTER FAMILY MEMBERS LEFT AND STAYED ASLEEP UNTIL 0500. AT THIS TIME, PT STARTED CALLING OUT. HE WAS CONFUSED AND HALLUCINATING. ATIVAN GIVEN. PT CURRENTLY ASLEEP. WHEN PT WAS MORE ALERT DURING THE BEGINNING OF SHIFT BOTH PT AND FAMIY MEMBER REQUESTED NOT TO WAKE UP PT TO REPOSITIONING PT EVERY 2 HOURS. OKAY TO REPOSITION A FEW TIMES PER FAMILY MEMBER. BED ALARM ON, CALL LIGHT WITHIN REACH. REPORT GIVEN TO AM NURSE.
--- NOTE | 2020-04-09 08:27 | NUR ---
Spoke with Dr Branch prior to Pt visit and discussed case. Dr Branch will order seroquel scheduled to assist with managing agitation and hallucinations. Blood sugar checks added back to care plan. Pt resting in bed with his eyes closed upon arrival. Pt briefly opens his eyes then closes them. Pt appears comfortable with no S/S of distress at this time. Spoke with daughter Herminia and engaged in therapeutic listening. Family would like to keep Pt on comfort care but add blodd sugar management for comfort. No other concerns reported at this time. Spoke with Bedside GISELLE Arthur and discussed case. Palliative Care will remain available for symptom management and supportive visits.
--- NOTE | 2020-04-09 18:41 | NUR ---
sleepy but rousable, recognizes family at times, time and place changes, family very attentive, have provided creams to help reduce itching, suggested bed bath but waiting for family, call light in reach, saline locked, air, bed in low position, family in rm, will continue to monitor and treat until share bsr with staff, pt and family
--- NOTE | 2020-04-10 05:54 | NUR ---
SUMMARY PT REMAINED COMFORTABLE FOR MOST OF SHIFT. PT DID WAKE UP C/O PENIS PAIN. PT PENIS FOUND RIGID AND SCANT BLOOD NOTED. PT APPEARS TO HAVE BEEN PULLING AT MURPHY. PT MEDICATED FOR PAIN AND ANXIETY. PT HAS BEEN SLEEPING COMFORTABLY FOR REST OF SHIFT. PT CURRENTLY SLEEPING COMFORTABLY.
--- NOTE | 2020-04-10 10:40 | NUR ---
COMFORT CARE VISIT - Summary of visit to pt and family and multiple case conf with RN, , bridge rigger and [facility] Care coord, Tanesha. Pt lives in his own home, has a hospital bed and bedside commode in place. His son and DIL are in the home and have been his CGs there for the past month. Son is recovering from a stroke himself, per elayne so she is worried about that. Elayne lives in [place] and works 4d/w. She states she can help her brother and livia on her 3d off per week. Another elayne lives in [place] also. Pt is a and elayne believes he is service connected. [facility] but then stated they felt like [facility] is best. They are tentatively planning on taking him home with hospice after speaking with this am. Pt is rousable briefly but appears very painful and anxious at this time. RN and I conferenced on strategy to get him comfortable using Roxanol and Ativan as ordered per eMAR. Time spent answering family questions and problem solving their concerns. Coordinated d/c plans with Jump Roll Operator and Language Asst, who will meet with family also. Pt is demonstrating nonverbal painful behavious with touch or any attempt to reposition him. Discussed plan of attaining better level of comofort today, prior to scheduling transport or planning d/c home. [facility] can see pt tomorrow. He has been on [facility] services currently and family requests [facility] if they are able to admit to hospice in a timely manner, which it appears that they can. Pt approved for hospice per [facility] screener. Plan to reeval for comfort around 2 pm in addition to RN's regular comfort care assessments.
--- NOTE | 2020-04-10 14:59 | NUR ---
COMFORT CARE VISIT - f/U visit made for pain assessment. Pt appears less painful with fewer nonverbal indicators noted. He occassionally responds appropriately to a question or his daughter at bedside. Pt cried out in pain with repositioning, despite med administration approx 30 minutes ago. That dose was 3 hours since prev Roxanol dose. Discussed goal of comfort and SE of analgesics and ativan with tere. She confirms that family understands pt may be more somnolent and less interactive with increased freq of medications but want comfort as primary goal. RN to give Roxanol again per eMar around 3 and I will reassess again. At this time I do not believe he could be comfortably transported and transferred from bed to [facility] and from [facility] to his hospital bed at home. Tere states she plans to stay over night in town to assist with getting pt back to his home with her brother and livia. Time spent visiting with pt's tere after he fell asleep. Their mother has declined in her health and is in LTC at [facility] for the past 1.5 year also. Family is feeling the burden of caring for both parents at EOL. She is concerned for her brother and hoping she can alleviate some of his stressors. Discussed how to empty tenorio drainage bag and reviewed s/s of progression of dying process with daughter. She verbalized understanding.
--- NOTE | 2020-04-10 15:44 | NUR ---
PAL CARE - THIRD COMFORT CARE VISIT TODAY. PT REMAINS PAINFUL AND RESTLESS, THOUGH SLIGHTLY LESS SO THAN FIRST THING THIS AM. ROXANOL FREQUENCY INCREASED AND ATIVAN GIVEN X 1 TODAY. I DO NOT BELIEVE PT'S S/S ARE WELL MANAGED ENOUGH FOR TRANSPORT HOME TODAY. RN IN AGREEMENT. REPORT CALLED TO AAKASH, AMANDA HOLLOWAY DR. AND BELLY DUMP DRIVER. VO OBTAINED TO START DURAGESIC PATCH 25MCG NOW WITH PLAN TO CONTINUE ROXANOL AND ATIVAN USE MORE FREQUENTLY PER eMAR, T/O NOC DURAGESIC PATCH GAINS THERAPEUTIC LEVEL IN NEXT 18-36 HOURS AND TAPERING OF ROXANOL IF PT ACHIEVES GREATER LEVEL OF COMFORT AND LESS RESTLESSNESS. FAMILY IN AGREEMENT WITH PLAN FOR D/C EARLY IN THE DAY TOMORROW AND HOSPICE ADMIT TO SERVICE TOMORROW. WE WILL CONT TO WORK ON IMPROVED S/S MANAGEMENT UNTIL D/C. PLANNED WITH RN AND RIGOBERTO TO REASSESS FIRST THING IN AM. RIGOBERTO IS APPRECIATIVE OF EFFORTS TOWARDS COMFORT AND D/C. SHE IS VERY ATTENTIVE AND GENTLE WITH HER DAD.
--- NOTE | 2020-04-10 16:58 | NUR ---
SHIFT SUMMARY- PT SLEPT FOR MOST OF THIS SHIFT. FAMILY AT BEDSIDE. PT UNCOMFORTABLE THIS SHIFT AND BEING MEDICATED PER MAR. DISCHARGE DELAYED UNTIL PT IS ABLE TO BE REPOSITIONED WITHOUT MUCH DISCOMFORT. BED IN LOW POSITION, CALL LIGHT WITHIN REACH
--- NOTE | 2020-04-10 18:46 | NUR ---
Spiritual care note: No family present at time of visit. Pt appears to be comfortably sleeping. Breaths uneven, but peaceful. Prayer provided at bedside. I will remain available to pt and family.
--- NOTE | 2020-04-10 19:16 | NUR ---
ASSUMED CARE. PATIENT JUST MEDICATED FOR PAIN, HE IS SLEEPING, IS MOVING HIS ARMS BUT IS NOT OPENING HIS EYES. APPEARS TO BE COMFORTABLE. CATHETER PATIENT AND DRAINING. DAUGHTER STATES SHE WILL BE GOING HOME TONIGHT AND WILL BE BACK IN THE AM. CALL LIGHT IS IN REACH.
--- NOTE | 2020-04-10 22:08 | NUR ---
PATIENT STARTING TO GET RESTLESS AND HAS MOANED LOUDLY A COUPLE OF TIMES WHEN HE TRIED TO MOVE. MEDICATED WITH ROXINAL PER ORDERS. OCCATIONAL COUGH IS NOTED. REPOSITIONED. WILL CONTINUE TO MONITOR,
--- NOTE | 2020-04-11 03:07 | NUR ---
CHECKED ON PATIENT, HE WAS SOAKED IN SWEAT. REMOVED BLANKETS AND WIPED HIM DOWN. CHANGED LINEN. REPOSITIONED. LEFT GOWN OFF AND PUT ON SHEET. HEAT TURNED DOWN. APPEARS TO BE COMFORTABLY HE DID NOT MOAN VERY MUCH WHEN REPOSITIONING. CALL LIGHT IS WITH IN REACH.
--- NOTE | 2020-04-11 04:25 | NUR ---
ROUNDING ON PATIENT, HE IS COOLED DOWN. COVERED HIM UP WITH BLANKET. NO SIGN OF PAIN OR DISCOMFORT. MOISTEN MOUTH, ORAL CARE. HE HAS DEVELOPED SOME SECREATIONS BUT HE COUGHS OCCATIONALLY AND CLEARS. DOES APPEAR THAT THE FENTANYL IS WORKING WHEN HE IS MOVED HE DOES NOT MOAN IN PAIN ANYMORE. SET HIM UP AT 30 DEGREES DUE TO RATTLING SOUNDS.
--- NOTE | 2020-04-11 07:25 | NUR ---
SHIFT SUMMARY: COMFORT CARE. GARTH REMAINED COMFORTABLE ALL NIGHT. HE GOT ONE DOSE OF ROXINAL AT START OF SHIFT. LATER IN THE SHIFT HE BECAME DIAPHORETIC, REMOVED CLOTHING AND WIPPED HIM DOWN. PLACED ONLY A SHEET ON HIM UNTIL HE WAS COOLED AND THEN BLANKET WAS PUT BACK ON. FENTANYL KICKED IN HE BECAME COMFORTABLE WITH REPOSITIONING. ALSO DEVELOPED A SLIGHT RATTLE AND WOULD COUGH OCCATIONALLY. LAST REPOSITION WAS AROUND 0615 HE HAD SLOWED BREATHING TO 14 BREATHS PER MINUTES. SAT HIM UP DUE TO STARTING TO GET SECREATIONS. AFTER GIVING REPORT, DAY SHIFT RN WENT TO CHECK ON PATIENT AND FOUND HIM . IRAM RN CALLED MD AND INFORMED OF HIS PASSING AT 0705. CALLED AND SPOKE TO GARTH VILLALTA INFORMED OF THE PASSING, HE WILL CONTACT HIS SISTER AND WILL BE IN TO PAY HIS RESPECTS. [facility]ATIONS.
--- NOTE | 2020-04-11 08:27 | NUR ---
Spoke with press manager Sally and Bedside GISELLE Evans. Pt this AM and family on the way in. Offered supportive visit when family arrived. Offered condolences and therapeutic listening. Family appreciative of care that was provided for Pt. Provided a list of homes and answered questions. Family expresses appreciation and report no other concerns at this time. Family appears to be grieving appropriately. Palliative Care will remain available.
--- NOTE | 2020-04-11 10:14 | NUR ---
PT PASSED THIS MORNING AT SHIFT CHANGE. MURPHY REMOVED, PT CLEANED AND PLACED IN YELLOW GOWN. FAMILY CAME TO PAY RESPECTS.
== END 2020-04-11 07:05 | DRG 637 ==
LOC: ER 01:19 → PCU 03:44 → MEDS 13:43
PROVIDERS: Emergency Medicine; Family Medicine; ADMIT Internal Medicine
DX: E11.649 Type 2 diabetes mellitus with hypoglycemia without coma (principal); G93.41 Metabolic encephalopathy; F03.91 Unspecified dementia, unspecified severity, with behavioral disturbance; I13.0 Hypertensive heart and chronic kidney disease with heart failure and stage 1 through stage 4 chronic kidney disease, or unspecified chronic kidney disease; I50.42 Chronic combined systolic (congestive) and diastolic (congestive) heart failure; Z51.5 Encounter for palliative care; Z20.828 Contact with and (suspected) exposure to other viral communicable diseases; N17.9 Acute kidney failure, unspecified; E87.6 Hypokalemia; E11.22 Type 2 diabetes mellitus with diabetic chronic kidney disease; I25.10 Atherosclerotic heart disease of native coronary artery without angina pectoris; E78.5 Hyperlipidemia, unspecified; Z95.0 Presence of cardiac pacemaker; Z87.891 Personal history of nicotine dependence; Z66 Do not resuscitate; R68.0 Hypothermia, not associated with low environmental temperature; R62.7 Adult failure to thrive; E86.0 Dehydration; I95.9 Hypotension, unspecified; N18.30 Chronic kidney disease, stage 3 unspecified; E11.65 Type 2 diabetes mellitus with hyperglycemia
CPT/HCPCS: 36415; 51701; 70450; 71045; 80047; 80048; 80053; 81001; 82550; 82947; 83690; 83735; 84484; 85014; 85025; 93005; 93010; 96365; 96366; 96368; 96375; 99285-25; A9270; A9270-GY; J3475; J3480; J7030; J7042; Q0163